=== PATIENT | female | born 1975 | race Hispanic/Latino ===

== ENCOUNTER 2018-08-30 21:13 | Emergency (ER) | payer SELFPAY ==
[2018-08-30] MEDS ORDERED: ACETAMINOPHEN 500 MG TAB ONE ×2 (22:18)
[2018-08-30] MEDS ORDERED: METOCLOPRAMIDE 10 MG/2mL INJ ONE (22:48)
[2018-08-30] MEDS ORDERED: NA CHLORIDE 0.9% 1,000 ML ONE (22:48)
[2018-08-30] MEDS ORDERED: ONDANSETRON 4 MG/2 ML VIAL ONE (22:48)
[2018-08-30] MEDS ORDERED: DEXAMETHASONE 10 MG/ML VIAL ONE (22:48)
[2018-08-30 23:12] LABS: Absolute Lymphocytes (CBC) 1.7 K/uL (0.7-4.9); Absolute Monocytes 0.1 K/uL (0.1-1.3); Absolute Neutrophil 9.5 K/uL (1.8-8.0); Basophils % 0.3 % (0-1.3); Hematocrit 41.7 % (36.0-45.0); MCH 30.4 pg (27.0-35.0); MCV 87.5 fL (80-100); Monocytes % 0.9 % (3.3-12.3); RBC Red Blood Cell Count 4.77 M/uL (3.86-4.86)
[2018-08-30 23:43] LABS: Magnesium 2.3 mg/dL (1.8-2.4); Potassium 3.5 mmol/L (3.5-5.1)
[2018-08-31 00:25] LABS: Urine Blood NEGATIVE (NEG); Urine Glucose NEGATIVE (NEG); Urine Protein NEGATIVE (NEG); Urine Specific Gravity 1.025 (1.005-1.030)
--- NOTE | 2018-08-31 01:19 | ER ---
Nurse's Notes [facility] Name: Leila Oconnell Age: 43 yrs Sex: Female : 1975 Arrival Date: 08/30/2018 Time: 21:15 Bed 15 Private MD: Diagnosis: Headache;Elevated blood-pressure reading, without diagnosis of hypertension Presentation: 08/30 21:30 Presenting complaint: states: "She had surgery on her sweet tooth today, she aj1 slept all day, she woke up an hour ago with a headache and it hasn't gone away" Reports in the back of her head. Reports nausea, vomiting. Denies photophobic, blurred vision. States that she was having some blurred vision at home, but that's gone away now. Transition of care: patient was not received from another setting of care. Onset of symptoms was August 30, 2018. Risk Assessment: Do you want to hurt yourself or someone else? Patient reports no desire to harm self or others. Initial Sepsis Screen: Does the patient meet any 2 criteria? No. Patient's initial sepsis screen is negative. Does the patient have a suspected source of infection? No. Patient's initial sepsis screen is negative. Care prior to arrival: None. 21:30 Method Of Arrival: Wheelchair aj1 21:30 Acuity: TAMIKO 3 aj1 Triage Assessment: 21:32 Headache History: The patient has had previous headaches and this one is more severe aj1 than previous episodes. General: Appears uncomfortable, Behavior is cooperative, restless. Pain: Complains of pain in scalp Pain currently is 10 out of 10 on a pain scale. Pain began 1 hour ago. Also complains of nausea, vomiting. Neuro: Level of Consciousness is awake, alert, obeys commands, Moves all extremities. Full function Speech is normal, Facial symmetry appears normal, Reports headache. Cardiovascular: Patient's skin is warm and dry. Respiratory: Airway is patent Respiratory effort is even, unlabored, Respiratory pattern is regular, symmetrical. 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 - Social history:: Smoking status: Patient/guardian denies using tobacco. - Ebola Screening: : Patient denies travel to an Ebola-affected area in the 21 days before illness onset. Screenin:17 Abuse screen: Denies threats or abuse. Nutritional screening: No deficits noted. tl2 Tuberculosis screening: No symptoms or risk factors identified. Fall Risk None identified. Assessment: 22:17 General: Appears in no apparent distress. uncomfortable, Behavior is calm, cooperative, tl2 appropriate for age. Pain: Complains of pain in headache Pain does not radiate. Pain currently is 8 out of 10 on a pain scale. Neuro: Level of Consciousness is awake, alert, obeys commands, Oriented to person, place, time, situation. Neuro: Reports headache. Cardiovascular: Denies chest pain. Respiratory: Airway is patent Respiratory effort is even, unlabored, Respiratory pattern is regular, symmetrical. GI: No signs and/or symptoms were reported involving the gastrointestinal system. : No signs and/or symptoms were reported regarding the genitourinary system. Derm: Skin is pink, warm \\T\\ dry. 08/31 00:01 Reassessment: Patient appears in no apparent distress at this time. Patient and/or tl2 family updated on plan of care and expected duration. Pain level reassessed. Patient is alert, oriented x 3, equal unlabored respirations, skin warm/dry/pink. Pt resting quietly, no questions or concerns at this time. 01:09 Reassessment: Patient appears in no apparent distress at this time. Pt appears to be tl2 sleeping, RR even and unlabored. 01:36 Reassessment: Patient appears in no apparent distress at this time. Patient and/or tl2 family updated on plan of care and expected duration. Pain level reassessed. Patient is alert, oriented x 3, equal unlabored respirations, skin warm/dry/pink. Pt verbalized understanding of discharge instructions, need for follow up and prescription usage Patient states feeling better. Vital Signs: 08/30 21:32 BP 170 / 110; Pulse 75; Resp 18; Temp 97.3(TE); Pulse Ox 98% on R/A; Weight 88.45 kg aj1 (R); Height 5 ft. 2 in. (157.48 cm) (R); Pain 10/10; 22:51 BP 162 / 100; Pulse 76; Resp 18; Pulse Ox 96% on R/A; tl2 23:18 BP 162 / 98; Pulse 80; Resp 18; Pulse Ox 97% on R/A; tl2 08/31 00:00 BP 161 / 101; Pulse 62; Resp 18; Pulse Ox 94% on R/A; tl2 01:09 BP 154 / 110; Pulse 64; Resp 18; Pulse Ox 94% on R/A; tl2 01:36 BP 147 / 106; Pulse 64; Resp 18; Pulse Ox 96% on R/A; Pain 3/10; tl2 08/30 21:32 Body Mass Index 35.67 (88.45 kg, 157.48 cm) aj1 ED Course: 08/30 21:15 Patient arrived in ED. al2 21:32 Triage completed. aj1 21:32 Arm band placed on Patient placed in waiting room, Patient notified of wait time. aj1 21:55 Elmer Butcher PA is PHCP. cp 21:55 Bi Fu MD is Attending Physician. cp 22:05 Lia Dove RN is Primary Nurse. tl2 22:17 Patient has correct armband on for positive identification. Bed in low position. Call tl2 light in reach. Side rails up X 1. Adult w/ patient. 22:30 Inserted saline lock: 20 gauge in right antecubital area, using aseptic technique. tl2 Blood collected. 08/31 00:33 CT completed. Patient tolerated procedure well. Patient moved to CT via stretcher. Patient moved back from CT. 00:34 CT Head Brain wo Cont In Process Unspecified. EDMS 01:36 No provider procedures requiring assistance completed. IV discontinued, intact, tl2 bleeding controlled, No redness/swelling at site. Pressure dressing applied. Administered Medications: 08/30 22:17 Drug: Tylenol 1000 mg Route: PO; tl2 23:00 Follow up: Response: No adverse reaction; Pain is decreased tl2 22:49 Drug: NS 0.9% 1000 ml Route: IV; Rate: 1 bolus; Site: right antecubital; tl2 08/31 01:38 Follow up: IV Status: Completed infusion; IV Intake: 1000ml tl2 08/30 22:49 Drug: Reglan 20 mg Route: IVP; Site: right antecubital; tl2 23:30 Follow up: Response: No adverse reaction; Pain is decreased tl2 22:49 Drug: Zofran 4 mg Route: IVP; Site: right antecubital; tl2 23:30 Follow up: Response: No adverse reaction; Nausea is decreased tl2 22:49 Drug: Decadron - Dexamethasone 10 mg Route: IVP; Site: right antecubital; tl2 23:30 Follow up: Response: No adverse reaction; Pain is decreased tl2 Intake: 08/31 01:38 IV: 1000ml; Total: 1000ml. tl2 Outcome: 01:19 Discharge ordered by . cp 01:36 Discharged to home ambulatory, with family. tl2 01:36 Condition: stable 01:36 Discharge instructions given to patient, Instructed on discharge instructions, follow up and referral plans. medication usage, Demonstrated understanding of instructions, follow-up care, medications, Prescriptions given X 2. 01:39 Patient left the ED. tl2 Signatures: Dispatcher [employer] EDChaparrita Hanson RN RN aj1 Osbaldo Marie Corey, PA PA cp Knox, Taylor, RN RN tl2 Missy Birch
--- NOTE | 2018-08-31 01:20 | EDPHYS ---
Physician Documentation [facility] Name: Leila Oconnell Age: 43 yrs Sex: Female : 1975 Arrival Date: 08/30/2018 Time: 21:15 Bed 15 Private MD: ED Physician Bi Fu HPI: 08/30 22:15 This 43 yrs old Female presents to ER via Wheelchair with complaints of cp Headache. 22:15 The patient complains of pain to the occipital area. cp 22:15 The patient describes the headache as aching, constant. cp 22:15 Onset: The symptoms/episode began/occurred today, 1 hour(s) ago. cp 22:15 Associated signs and symptoms: Pertinent positives: nausea, Photophobia Pertinent cp negatives: altered mental status, fever, neck stiffness, vomiting, weakness. 22:15 Severity of symptoms: in the emergency department the pain a " 10" out of "10". cp 22:15 Patient reports having right lower back molar removed earlier today. 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 - Social history:: Smoking status: Patient/guardian denies using tobacco. - Ebola Screening: : Patient denies travel to an Ebola-affected area in the 21 days before illness onset. ROS: 22:15 Constitutional: Negative for body aches, chills, fever, poor PO intake. cp 22:15 Eyes: Positive for photophobia, Negative for discharge, redness, vision loss. cp 22:15 ENT: Negative for drainage from ear(s), ear pain, dental pain, difficulty swallowing, difficulty handling secretions. 22:15 Cardiovascular: Negative for chest pain, edema, palpitations. 22:15 Respiratory: Negative for cough, shortness of breath, wheezing. 22:15 Abdomen/GI: Positive for nausea, Negative for abdominal pain, diarrhea, constipation, anorexia, black/tarry stool, rectal bleeding, active vomiting. 22:15 : Negative for urinary symptoms. 22:15 Skin: Negative for cellulitis, rash. 22:15 Neuro: Positive for headache, Negative for altered mental status, weakness. 22:15 All other systems are negative. Exam: 22:15 Constitutional: The patient appears in no acute distress, alert, awake, cp non-diaphoretic, non-toxic, well developed, well nourished. 22:15 Head/Face: Normocephalic, atraumatic. Eyes: Pupils equal round and reactive to light, cp extra-ocular motions intact. Lids and lashes normal. Conjunctiva and sclera are non-icteric and not injected. Cornea within normal limits. Periorbital areas with no swelling, redness, or edema. 22:15 ENT: External ear(s): are unremarkable, Ear canal(s): are normal, clear, TM's: bulging, is not appreciated, bilaterally, dullness, bilaterally, erythema, is not appreciated, bilaterally, Nose: is normal, Mouth: Lips: moist, Oral mucosa: pink and intact, moist, Posterior pharynx: is normal, airway is patent, no erythema, no exudate, Dental exam: gum swelling, that is mild, specifically in the lower right second molar (#31), missing teeth, specifically the lower right second bicuspid (#29) and lower right second molar (#31), pain, is not appreciated. 22:15 Neck: ROM/movement: is normal, is supple, no range of motions limitations, no meningismus, no nuchal rigidity, Lymph nodes: no appreciated lymphadenopathy. 22:15 Chest/axilla: Inspection: normal, Palpation: is normal, no crepitus, no tenderness. 22:15 Cardiovascular: Rate: normal, Rhythm: regular, Heart sounds: murmur, not appreciated, rub, not appreciated, gallop, not appreciated, Edema: is not appreciated, JVD: is not appreciated. 22:15 Respiratory: the patient does not display signs of respiratory distress, Respirations: normal, no use of accessory muscles, no retractions, no splinting, no tachypnea, labored breathing, is not present, Breath sounds: are clear throughout, no decreased breath sounds, no stridor, no wheezing. 22:15 Abdomen/GI: Inspection: abdomen appears normal, Bowel sounds: active, all quadrants, Palpation: abdomen is soft and non-tender, in all quadrants, voluntary guarding, is not appreciated, involuntary guarding, is not appreciated. 22:15 Back: pain, is absent, ROM is normal. 22:15 Neuro: Orientation: to person, place \\T\\ time. Mentation: lucid, able to follow commands, Cerebellar function: is grossly normal, Motor: moves all fours, strength is normal, Sensation: no obvious gross deficits. Vital Signs: 21:32 BP 170 / 110; Pulse 75; Resp 18; Temp 97.3(TE); Pulse Ox 98% on R/A; Weight 88.45 kg aj1 (R); Height 5 ft. 2 in. (157.48 cm) (R); Pain 10/10; 22:51 BP 162 / 100; Pulse 76; Resp 18; Pulse Ox 96% on R/A; tl2 23:18 BP 162 / 98; Pulse 80; Resp 18; Pulse Ox 97% on R/A; tl2 08/31 00:00 BP 161 / 101; Pulse 62; Resp 18; Pulse Ox 94% on R/A; tl2 01:09 BP 154 / 110; Pulse 64; Resp 18; Pulse Ox 94% on R/A; tl2 01:36 BP 147 / 106; Pulse 64; Resp 18; Pulse Ox 96% on R/A; Pain 3/10; tl2 08/30 21:32 Body Mass Index 35.67 (88.45 kg, 157.48 cm) aj1 MDM: 08/30 21:55 Patient medically screened. cp 08/31 00:00 Differential diagnosis: cluster headache, meningitis, meningoencephalitis, migraine, cp sinusitis, tension headache. 01:16 Data reviewed: vital signs, nurses notes, lab test result(s), radiologic studies, CT cp scan. Counseling: I had a detailed discussion with the patient and/or guardian regarding: the historical points, exam findings, and any diagnostic results supporting the discharge/admit diagnosis, the presence of at least one elevated blood pressure reading (>120/80) during this emergency department visit, lab results, radiology results, the need for outpatient follow up, a family practitioner, to return to the emergency department if symptoms worsen or persist or if there are any questions or concerns that arise at home. Response to treatment: the patient's symptoms have markedly improved after treatment, VSS. Headache markedly improved and patient observed resting comfortably in exam room. 08/30 22:36 Order name: Urine Dipstick--Ancillary (enter results); Complete Time: 00:35 mt 08/30 22:36 Order name: Urine --Ancillary (enter results); Complete Time: 00:35 mt 08/30 22:59 Order name: Basic Metabolic Panel; Complete Time: 00:35 EDMS 08/31 00:35 Interpretation: GLUC 148; GFR 78. cp 08/30 22:09 Order name: CT Head Brain wo Cont cp 08/30 22:59 Order name: Magnesium; Complete Time: 00:35 EDMS 08/30 22:59 Order name: CBC with Automated Diff; Complete Time: 00:35 EDMS 08/31 00:36 Interpretation: Normal except: WBC 11.4; MAICOL% 83.8; LYM% 15.0; MN% 0.9; NEUT A 9.5. cp 08/30 22:18 Order name: Urine Dipstick-Ancillary (obtain specimen); Complete Time: 22:35 cp 08/30 22:18 Order name: Urine Test (obtain specimen); Complete Time: 22:34 cp Administered Medications: 08/30 22:17 Drug: Tylenol 1000 mg Route: PO; tl2 23:00 Follow up: Response: No adverse reaction; Pain is decreased tl2 22:49 Drug: NS 0.9% 1000 ml Route: IV; Rate: 1 bolus; Site: right antecubital; tl2 08/31 01:38 Follow up: IV Status: Completed infusion; IV Intake: 1000ml tl2 08/30 22:49 Drug: Reglan 20 mg Route: IVP; Site: right antecubital; tl2 23:30 Follow up: Response: No adverse reaction; Pain is decreased tl2 22:49 Drug: Zofran 4 mg Route: IVP; Site: right antecubital; tl2 23:30 Follow up: Response: No adverse reaction; Nausea is decreased tl2 22:49 Drug: Decadron - Dexamethasone 10 mg Route: IVP; Site: right antecubital; tl2 23:30 Follow up: Response: No adverse reaction; Pain is decreased tl2 Disposition: 08/31 02:03 Co-signature as Attending Physician, Bi Fu MD Available for consultation at ps1 all times. . Chart complete. Disposition: 08/31/18 01:19 Discharged to Home. Impression: Headache, Elevated blood-pressure reading, without diagnosis of hypertension. - Condition is Stable. - Discharge Instructions: General Headache Without Cause, How to Take Your Blood Pressure, [id number]. - Prescriptions for promethazine 25 mg Oral Tablet - take 1 tablet by ORAL route every 6 hours As needed; 20 tablet. Ibuprofen 800 mg Oral Tablet - take 1 tablet by ORAL route every 8 hours As needed take with food; 30 tablet. - Medication Reconciliation Form, Thank You Letter, Antibiotic Education, Prescription Opioid Use form. - Follow up: Private Physician; When: 2 - 3 days; Reason: Recheck today's complaints. - Problem is new. - Symptoms have improved. Signatures: Dispatcher [employer] EDMS Chaparrita Pelaez RN RN aj1 Elmer Butcher PA PA cp Knox, Taylor, RN RN tl2 Bi Fu MD MD ps1 Corrections: (The following items were deleted from the chart) 08/30 23:44 23:34 CBC+H.LAB.BRZ ordered. EDNH EDNH 23:44 23:34 BASIC METABOLIC PANEL+C.LAB.BRZ ordered. EDNH EDNH 23:44 23:34 MAGNESIUM+C.LAB.BRZ ordered. [facility] 08/31 01:39 01:19 08/31/2018 01:19 Discharged to Home. Impression: Headache; Elevated tl2 blood-pressure reading, without diagnosis of hypertension. Condition is Stable. Forms are Medication Reconciliation Form, Thank You Letter, Antibiotic Education, Prescription Opioid Use. Follow up: Private Physician; When: 2 - 3 days; Reason: Recheck today's complaints. Problem is new. Symptoms have improved. cp 09/01 01:05 08/30 22:15 Onset: The symptoms/episode began/occurred today, cp cp
--- NOTE | 2018-08-31 08:16 | RAD REPORT ---
EXAM DESCRIPTION: CT - Head Brain Wo Cont - 08/31/2018 4:10 am CLINICAL HISTORY: elevated blood pressure;Headache COMPARISON: No comparisons TECHNIQUE: All CT scans are performed using dose optimization technique as appropriate and may inclu de automated exposure control or mA/KV adjustment according to patient size. FINDINGS: No intracranial hemorrhage, hydrocephalus or extra-axial fluid collection.No areas of brai n edema or evidence of midline shift. Left sphenoid sinus is opacified. Mild ethmoid sinus opacification also present. The calvarium is int act. IMPRESSION: No acute intracranial abnormality. Left-sided ethmoid and sphenoid chronic sinusitis.
== END 2018-08-31 01:39 | disposition home or self-care (01) ==
LOC: ER 21:13
DX: R03.0 Elevated blood-pressure reading, without diagnosis of hypertension (principal)
CPT/HCPCS: 36415; 70450; 80048; 81003; 81025; 83735; 85025; 96361; 96374; 96375; 99284; J1100; J2405; J2765; J7030